=== PATIENT | female | born 1960 | race Caucasian/White ===

== ENCOUNTER 2019-02-09 10:51 | Emergency (ER) | payer OTHER ==
[~2019-02-09] VITALS: Ht 124.5 cm; Wt 50.3 kg
--- OUTSIDE RECORDS SUMMARY | 2019-02-09 10:54 | XMS REPORT ---
[facility] Address Unknown Phone Unavailable Care Team Providers Care [employer] Principal Name Role Phone Unavailable Unavailable Payers Payer Name Policy Type Policy Number Effective Date Expiration Date Problems This patient has no known problems. Allergies, Adverse Reactions, Alerts Allergy Name Allergy Type Status Severity Reaction(s) Onset Date Inactive Date Treating Clinician Comments No Known Allergies DA Active U 2018-08-01 00:00:00 No Known Drug Intolerances DA Active U 2008-04-27 00:00:00 No Known Contrast Allergies DA Active U 2008-04-27 00:00:00 No Known Drug Allergies DA Active U 2008-04-27 00:00:00 No Known Food Allergies DA Active U 2008-04-27 00:00:00 No Known Other Allergies DA Active U 2008-04-27 00:00:00 Medications This patient has no known medications. Results Test Description Test Time Test Comments Text Results Atomic Results Result Comments GLUBED 2019-01-03 07:20:00 GLUBED (test code=GLUBED) 210 mg/dL 74-106 Performed by certified chainstitch tunnel elastic operator at [facility] [id number] 07:20:00* Test Item Value Reference Range Comments GLUBED (test code=GLUBED) 140 mg/dL 74-106 Performed by certified chainstitch tunnel elastic operator at [facility] [id number] 16:20:00* Test Item Value Reference Range Comments GLUBED (test code=GLUBED) 121 mg/dL 74-106 Performed by certified chainstitch tunnel elastic operator at [facility] [id number] 12:33:00* Test Item Value Reference Range Comments GLUBED (test code=GLUBED) 213 mg/dL 74-106 Performed by certified chainstitch tunnel elastic operator at [facility] [id number] 12:33:00* Test Item Value Reference Range Comments GLUBED (test code=GLUBED) 297 mg/dL 74-106 Performed by certified chainstitch tunnel elastic operator at [facility] - CT HEAD/BRAIN W/O [id number] 15:11:00 Name: MASON SANDHU [facility] : 1960 Age/S: 58 / F [address] [facility] Unit #: [id number] Loc: [place] [address] Phys: Talha Zimmerman MD Acct: [id number] Dis Date: Status: ADM IN PHONE #: [phone] Exam Date: 12/06/2018 1536 FAX #: [phone] Reason: ORANTES, uncontrolled HTN, h/o CVA EXAMS: CPT CODE: [id number] CT HEAD/BRAIN W/O CONT 87230 EXAM: CT of the head without contrast; INFORMATION: Uncontrolled hypertension, headache; history of CVA; TECHNIQUE AND FINDINGS: CT dose reduction protocol; 2.5 mm axial scans. A previously seen small bleed in the right basal ganglia has resolved. A small chronic lacunar infarct remains. There is no evidence of active intra or extra-axial hemorrhage. There are periventricular and deep white matter hypodensities. Ventricles are symm etric and of normal diameter; sulci and basilar cisterns are intact. There are calcifications of the internal carotid and vertebral arteries. The calvarium is intact. Paranasal sinuses and mastoid air cells are well aerated. IMPRESSION: 1. Small, chronic lacunar inf arct posteriorly in the right basal ganglia, in the location of a previo us bleed that was demonstrated on studies from July of last year. 2. No evidence of acute intra or extra-axial hemorrhage and no ev idence of acute territorial infarction. 3. Chronic ischemic white matter changes. at 1511 Reported and signed by: Juan Luis Hernandez M.D. CC: Alfonso Perez; Nathaniel Lorenzo MD; Talha Zimmerman MD Technologist:Charley Jimenez RT(R) CTDI: DLP: Trnscb Date/Time: 12/06/2018 (1511) tMARIBETH Orig Print D/T: S: 12/06/2018 (1511) CTDI: DLP: PAGE 1 Signed Report [id number] 13:48:00* Test Item Value Reference Range Comments GLUBED (test code=GLUBED) 171 mg/dL 74-106 Performed by certified chainstitch tunnel elastic operator at [facility] [id number] 13:48:00* Test Item Value Reference Range Comments GLUBED (test code=GLUBED) 166 mg/dL 74-106 Performed by certified chainstitch tunnel elastic operator at [facility] URINALYSIS [id number] 10:03:00* Test Item Value Reference Range Comments UA COLOR (test code=COLU) MARGARITO YELLOW UA APPEARANCE (test code=APPU) Cloudy CLEAR UA GLUCOSE DIPSTICK (test code=DGLUU) NEGATIVE mg/dL NEGATIVE UA BILIRUBIN DIPSTICK (test code=BILU) NEGATIVE mg/dL NEGATIVE UA KETONE DIPSTICK (test code=KETU) Negative mg/dL NEGATIVE UA SPECIFIC GRAVITY (test code=SGU) 1.014 1.001-1.035 UA BLOOD DIPSTICK (test code=ELPIDIO) Negative NEGATIVE UA PH DIPSTICK (test code=RACHNA) 6.0 5.0-8.0 UA PROTEIN DIPSTICK (test code=PROU) >500 (3+) mg/dL NEGATIVE UA UROBILINIOGEN DIPSTICK (test code=URO) NEGATIVE mg/dL NEGATIVE UA NITRITE DIPSTICK (test code=KARTIK) POSITIVE NEGATIVE UA LEUKOCYTE ESTERASE W REFLEX (test code=LEUUR) NEGATIVE NEGATIVE UA WBC (test code=WBCU) 11-20 #/HPF 0-5 UA RBC (test code=RBCU) 0-2 #/HPF 0-5 UA EPITHELIAL CELLS (test code=EPIU) Few (2-5/hpf) per HPF FEW UA BACTERIA (test code=BACU) FEW #/HPF NONE UA MUCUS (test code=MUCU) FEW #/LPF FEW Urine Source? Clean CatchURINALYSIS [id number] 09:57:00* Test Item Value Reference Range Comments UA COLOR (test code=COLU) MARGARITO YELLOW UA APPEARANCE (test code=APPU) Cloudy CLEAR UA GLUCOSE DIPSTICK (test code=DGLUU) NEGATIVE mg/dL NEGATIVE UA BILIRUBIN DIPSTICK (test code=BILU) NEGATIVE mg/dL NEGATIVE UA KETONE DIPSTICK (test code=KETU) Negative mg/dL NEGATIVE UA SPECIFIC GRAVITY (test code=SGU) 1.014 1.001-1.035 UA BLOOD DIPSTICK (test code=ELPIDIO) Negative NEGATIVE UA PH DIPSTICK (test code=RACHNA) 6.0 5.0-8.0 UA PROTEIN DIPSTICK (test code=PROU) >500 (3+) mg/dL NEGATIVE UA UROBILINIOGEN DIPSTICK (test code=URO) NEGATIVE mg/dL NEGATIVE UA NITRITE DIPSTICK (test code=KARTIK) POSITIVE NEGATIVE UA LEUKOCYTE ESTERASE W REFLEX (test code=LEUUR) NEGATIVE NEGATIVE UA WBC (test code=WBCU) per HPF 0-5 Urine Source? Clean CatchFE W/TOTAL IRON BINDING CAP.2018-12-06 09:36:00* Test Item Value Reference Range Comments SERUM IRON (test code=IRON) 33 ug/dL 50-175 TOTAL IRON BINDING CAPACITY (test code=TIBC) 240 mcg/dL 250-450 IRON SATURATION (test code=FESAT) 13.75 % 13-45 VITAMIN [id number] 09:36:00* Test Item Value Reference Range Comments VITAMIN B12 (test code=VITB12) 324 pg/mL 193-986 FOLIC [id number] 09:36:00* Test Item Value Reference Range Comments FOLIC ACID (test code=FOL) 13.8 ng/mL 3.10-17.50 [id number] 09:36:00* Test Item Value Reference Range Comments FERRITIN (test code=DIANA) 108 ng/mL 8-388 [id number] 08:09:00* Test Item Value Reference Range Comments GLUBED (test code=GLUBED) 189 mg/dL 74-106 Performed by certified chainstitch tunnel elastic operator at [facility] BASIC METABOLIC [id number] 03:32:00* Test Item Value Reference Range Comments SODIUM (test code=NA) 142 mmol/L 136-145 POTASSIUM (test code=K) 3.5 mmol/L 3.5-5.1 CHLORIDE (test code=CL) 105.0 mmol/L 98-107 CARBON DIOXIDE (test code=CO2) 29.0 mmol/L 21-32 ANION GAP (test code=GAP) 11.5 10-20 GLUCOSE (test code=GLU) 42 mg/dL 74-106 Results called to [id number] by DULCE 12/06/18 0332Critical results verified and read back by Nurse? Y BLOOD UREA NITROGEN (test code=BUN) 18 mg/dL 7-18 GLOMERULAR FILTRATION RATE (test code=GFR) 57 mL/min >=60 Estimated GFR by using Modified MDRD formula.Chronic kidney disease is defined as either kidney damageor GFR <60 mL/min/1.73 m2 for >3 months. CREATININE (test code=CREAT) 1.00 mg/dL 0.55-1.02 Note change in reference range due to change in reagent. BUN/CREATININE RATIO (test code=BUN/CREA) 17.1 10-20 CALCIUM (test code=CA) 8.5 mg/dL 8.5-10.1 LIPID PROFILE (CORONARY RISK)2018-12-06 03:32:00* Test Item Value Reference Range Comments TRIGLYCERIDES (test code=TRIG) 107 mg/dL 20-150 CHOLESTEROL (test code=CHOL) 72 mg/dL 0-200 CHOLESTEROL/HDL RATIO (test code=CHOLHDL) 1.0 RATIO 0-4.9 RISK ASSOCIATED WITH CHOL/HDL RATIOS: Risk Male Female1/2 AVERAGE 3.43 3.27AVERAGE 4.97 4.442X AVERAGE 9.55 7.053X AVERAGE 23.39 11.04 REFERENCE VALUE IS RELATED TO RISK LEVELS ASRECOMMENDED BY THE BETTY. HEART, LUNG, AND BLOOD INST. HDL CHOLESTEROL (test code=HDL) 39 mg/dL 40-60 LIPOPROTEIN LDL (test code=LDL) 29 mg/dL 100-129 Reference Interval: mg/dL mmol/L Optimal <100 <2.6Near/above optimal 100-129 2.6- 3.3Borderline High 130-159 3.4-4.1High 160-189 4.1-4.9Very High >=190 >=4.9=========This LDL result is a direct measurement.========= THYROID STIMULATING [id number] 03:32:00* Test Item Value Reference Range Comments THYROID STIMULATING HORMONE (test code=TSH) 2.600 uIU/mL 0.36-3.74 TSH REFERENCE RANGES: EUTHYROID: 0.35 - 4.3 mIU/mL HYPO : > 5.5 mIU/mL HYPER : < 0.35 mIU/mL [id number] 03:01:00* Test Item Value Reference Range Comments GLYCOSYLATED HEMOGLOBIN (HA1C) (test code=GLYHGB) 8.0 % HbA1 4.8-6.0 ESTIMATED AVERAGE GLUCOSE (test code=EAG) 183 MG/DL [id number] 02:50:00* Test Item Value Reference Range Comments GLUBED (test code=GLUBED) 92 mg/dL 74-106 Performed by certified chainstitch tunnel elastic operator at [facility] [id number] 02:49:00* Test Item Value Reference Range Comments TROPONIN-I (test code=TROPI) 0.420 ng/mL 0-0.045 RESULT VERIFIED BY REPEAT ANALYSIS COMMENTS TO CLEANING PORTER: COLLECT 3 HOURS AFTER PREVIOUS SAMPLEBASIC METABOLIC [id number] 02:45:00* Test Item Value Reference Range Comments SODIUM (test code=NA) 142 mmol/L 136-145 POTASSIUM (test code=K) 3.5 mmol/L 3.5-5.1 CHLORIDE (test code=CL) 105.0 mmol/L 98-107 CARBON DIOXIDE (test code=CO2) mmol/L 21-32 ANION GAP (test code=GAP) 10-20 GLUCOSE (test code=GLU) mg/dL 74-106 BLOOD UREA NITROGEN (test code=BUN) mg/dL 7-18 GLOMERULAR FILTRATION RATE (test code=GFR) mL/min >=60 CREATININE (test code=CREAT) mg/dL 0.55-1.02 BUN/CREATININE RATIO (test code=BUN/CREA) 10-20 CALCIUM (test code=CA) mg/dL 8.5-10.1 LIPID PROFILE (CORONARY RISK)2018-12-06 02:45:00* Test Item Value Reference Range Comments TRIGLYCERIDES (test code=TRIG) mg/dL 20-150 CHOLESTEROL (test code=CHOL) mg/dL 0-200 CHOLESTEROL/HDL RATIO (test code=CHOLHDL) RATIO 0-4.9 HDL CHOLESTEROL (test code=HDL) mg/dL 40-60 LIPOPROTEIN LDL (test code=LDL) mg/dL 100-129 THYROID STIMULATING [id number] 02:45:00* Test Item Value Reference Range Comments THYROID STIMULATING HORMONE (test code=TSH) uIU/mL 0.36-3.74 CBC W/O [id number] 02:12:00* Test Item Value Reference Range Comments WHITE BLOOD CELL (test code=WBC) 7.0 K/mm3 4.5-12.5 RED BLOOD CELL (test code=RBC) 3.33 mill/mm3 3.7-5.2 HEMOGLOBIN (test code=HGB) 8.6 gram/dL 11.5-15.5 HEMATOCRIT (test code=HCT) 28.0 % 36.0-46.0 MEAN CELL VOLUME (test code=MCV) 84.1 fL 80-98 MEAN CELL HGB (test code=MCH) 25.8 picogram 27.0-33.0 MEAN CELL HGB CONCETRATION (test code=MCHC) 30.7 gram/dL 33.0-36.0 RED CELL DISTRIBUTION WIDTH (test code=RDW) 17.0 % 11.6-16.2 PLATELET COUNT (test code=PLT) 242 K/mm3 150-450 MEAN PLATELET VOLUME (test code=MPV) 11.2 fL 6.7-11.0 [id number] 02:05:00* Test Item Value Reference Range Comments GLUBED (test code=GLUBED) 39 mg/dL 74-106 [facility] chainstitch tunnel elastic [facility]~ [id number] 23:08:00* Test Item Value Reference Range Comments TROPONIN-I (test code=TROPI) 0.471 ng/mL 0-0.045 RESULT VERIFIED BY REPEAT ANALYSIS COMMENTS TO CLEANING PORTER: COLLECT 3 HOURS AFTER PREVIOUS [id number] 21:12:00* Test Item Value Reference Range Comments GLUBED (test code=GLUBED) 102 mg/dL 74-106 Performed by certified chainstitch tunnel elastic operator at [facility] [id number] 20:07:00* Test Item Value Reference Range Comments GLUBED (test code=GLUBED) 76 mg/dL 74-106 Performed by certified chainstitch tunnel elastic operator at [facility] - XR CHEST 1 [id number] 15:37:00 FAX: Kareem Varela [phone] [place]: St: [facility] FAX: Alfonso Coronado [phone] Name: MASON SANDHU [facility] : 1960 Age/S: 58/F [address] [facility] Unit #: [id number] Loc: [place] [address] Phys: Kareem Armando MD Acct: [id number] Dis Date: Status: REG ER PHONE #: [phone] Exam Date: 12/05/2018 [facility] FAX #: [phone] Reason: CHEST PAIN EXAMS: CPT CODE: [id number] XR CHEST 1 V 79195 EXAM: Chest x-ray, one view; INFORMATION: Chest pain, hypertension; IMPRESSION: 1. Mild basilar atelectatic changes bilaterally, right greater than left. 2. Otherwise, no major change compared with a study from August 01, 2018. at 1537 Reported and signed by: Juan Luis Hernandez M.D. CC: Kareem Armando MD; Alfnoso Perez Technologist: Anna Phoenix Trnscrd Date/Time/By: 12/05/2018 (1537) : By: Deirdre Orig Print D/T: S: 12/05/2018 (8714) PAGE 1 Signed Report BASIC METABOLIC [id number] 15:36:00* Test Item Value Reference Range Comments SODIUM (test code=NA) 138 mmol/L 136-145 POTASSIUM (test code=K) 4.2 mmol/L 3.5-5.1 CHLORIDE (test code=CL) 104.0 mmol/L 98-107 CARBON DIOXIDE (test code=CO2) 24.0 mmol/L 21-32 ANION GAP (test code=GAP) 14.2 10-20 GLUCOSE (test code=GLU) 193 mg/dL 74-106 BLOOD UREA NITROGEN (test code=BUN) 15 mg/dL 7-18 GLOMERULAR FILTRATION RATE (test code=GFR) 57 mL/min >=60 Estimated GFR by using Modified MDRD formula.Chronic kidney disease is defined as either kidney damageor GFR <60 mL/min/1.73 m2 for >3 months. CREATININE (test code=CREAT) 1.00 mg/dL 0.55-1.02 Note change in reference range due to change in reagent. BUN/CREATININE RATIO (test code=BUN/CREA) 14.9 10-20 CALCIUM (test code=CA) 8.5 mg/dL 8.5-10.1 [id number] 15:36:00* Test Item Value Reference Range Comments TROPONIN-I (test code=TROPI) 0.501 ng/mL 0-0.045 Results called to [facility] 12/05/18 1536Critical results verified and read back by Nurse? Y BASIC METABOLIC [id number] 15:03:00* Test Item Value Reference Range Comments SODIUM (test code=NA) 138 mmol/L 136-145 POTASSIUM (test code=K) 4.2 mmol/L 3.5-5.1 CHLORIDE (test code=CL) 104.0 mmol/L 98-107 CARBON DIOXIDE (test code=CO2) mmol/L 21-32 ANION GAP (test code=GAP) 10-20 GLUCOSE (test code=GLU) mg/dL 74-106 BLOOD UREA NITROGEN (test code=BUN) mg/dL 7-18 GLOMERULAR FILTRATION RATE (test code=GFR) mL/min >=60 CREATININE (test code=CREAT) mg/dL 0.55-1.02 BUN/CREATININE RATIO (test code=BUN/CREA) 10-20 CALCIUM (test code=CA) mg/dL 8.5-10.1 [id number] 15:03:00* Test Item Value Reference Range Comments TROPONIN-I (test code=TROPI) ng/mL 0-0.045 CBC W/O [id number] 14:59:00* Test Item Value Reference Range Comments WHITE BLOOD CELL (test code=WBC) 9.0 K/mm3 4.5-12.5 RED BLOOD CELL (test code=RBC) 3.96 mill/mm3 3.7-5.2 HEMOGLOBIN (test code=HGB) 10.1 gram/dL 11.5-15.5 HEMATOCRIT (test code=HCT) 34.0 % 36.0-46.0 MEAN CELL VOLUME (test code=MCV) 85.9 fL 80-98 MEAN CELL HGB (test code=MCH) 25.5 picogram 27.0-33.0 MEAN CELL HGB CONCETRATION (test code=MCHC) 29.7 gram/dL 33.0-36.0 RED CELL DISTRIBUTION WIDTH (test code=RDW) 17.4 % 11.6-16.2 PLATELET COUNT (test code=PLT) 285 K/mm3 150-450 MEAN PLATELET VOLUME (test code=MPV) 12.3 fL 6.7-11.0
--- NOTE | 2019-02-09 13:16 | Diagnostic Imaging Report ---
Exam: Abdominal film Clinical History: Constipation Comparison: None. DISCUSSION: The bowel gas pattern shows no dilated, air-filled loops of small bowel. Gas and fecal material is noted throughout the large bowel. No abnormal abdominal mass effect or organomegaly. Multiple round pelvic calcifications, some with lucent centers, likely represent phleboliths. Atherosclerotic vascular calcifications. Regional skeletal structures are intact. IMPRESSION: Nonobstructive bowel gas pattern. Signed by: Dr. Aries Villafuerte M.D. on 02/09/2019 1:12 PM
--- NOTE | 2019-02-09 13:17 | Diagnostic Imaging Report ---
EXAMINATION: PA and lateral views of the chest. COMPARISON: None CLINICAL HISTORY: Constipation DISCUSSION: Lines/tubes: None. Lungs: Linear opacity in the right midlung compatible with scar or subsegmental atelectasis. No consolidation. Pleura: There is no pleural effusion or pneumothorax. Heart and mediastinum: The cardiomediastinal silhouette is normal. Bones and soft tissues: No acute bony abnormalities. Degenerative changes in the thoracic spine IMPRESSION: No acute cardiopulmonary abnormalities. Signed by: Dr. Aries Villafuerte M.D. on 02/09/2019 1:13 PM
[2019-02-09 14:17] VITALS: BP 104/60
== END 2019-02-09 15:40 | disposition home or self-care (01) ==
LOC: ER 10:51
DX: K64.4 Residual hemorrhoidal skin tags (principal); I10 Essential (primary) hypertension; E11.9 Type 2 diabetes mellitus without complications; Z86.73 Personal history of transient ischemic attack (TIA), and cerebral infarction without residual deficits
CPT/HCPCS: 71046; 74018; 99284